=== PATIENT | male | born 1955 | race Caucasian/White ===

== ENCOUNTER 2017-04-02 18:07 | Emergency (ER) | payer OTHER ==
[~2017-04-02] VITALS: Ht 188 cm; Wt 111.0 kg
[2017-04-02 18:10] VITALS: PULSE 76; RESP 16; TEMP 98; O2SAT 98
[2017-04-02 18:26] VITALS: BP 150/78
[2017-04-02] MEDS ORDERED: AMIT10TA6 PO (18:26)
[2017-04-02] MEDS ORDERED: CYCL10TA PO (18:39)
[2017-04-02] MEDS ORDERED: TRAM50 PO (18:39)
[2017-04-02] MEDS ORDERED: HYDROmorphone HCL PF 2 MG/ML VIAL IM ONE ×2 (18:45)
[2017-04-02] MEDS ORDERED: DEXAMETHASONE SOD PHOS 20 MG/5 ML VIAL IM ONE (18:45)
[2017-04-02] MEDS ORDERED: HYDROmorphone HCL PF 4 MG/ML VIAL IM ONE (18:45)
[2017-04-02] MEDS ORDERED: LORazepam 2 MG/ML VIAL IM ONE (18:45)
--- NOTE | 2017-04-02 18:46 | PD ---
HPI . 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 Originally it felt like a burning/ stinging type pain but has evolved into a constant pain rated 6/10 at baseline and 9/10 with movement. Pain is aggravated by sitting up and relieve by lying flat and heat. He reports no other symptoms including bowel or bladder incontinence, numbness or tingling in toes, fevers/chills, or rashes PFSH Past Medical History Diabetes: Yes (PRE) Patient Takes Glucophage: No Diminished Hearing: No Medical other: Yes (NEUROPATHY) Tetanus Vaccination: > 5 Years Influenza Vaccination: No Past Surgical History Appendectomy: Yes Tonsillectomy: Yes Social History Alcohol Use: Yes (SOCIAL) Tobacco Use: No Substance Use: No Allergies-Medications (Allergen,Severity, Reaction): Coded Allergies: Penicillins (Verified Allergy, Unknown, 04/02/17) Reported Meds & Prescriptions Reported Meds & Active Scripts Active Flexeril (Cyclobenzaprine HCl) 10 Mg Tab 10 Mg PO TID Ultram (Tramadol HCl) 50 Mg Tab 50 Mg PO Q4H PRN Reported Amitriptyline (Amitriptyline HCl) 10 Mg Tab Unknown Dose PO HS Review of Systems Except as stated in HPI: all other systems reviewed are Neg General / Constitutional: No: Fever, Chills Musculoskeletal: Positive: Limited ROM, Pain (lower back) Skin: No Rash Physical Exam Narrative General: alert and oriented male in moderate distress laying flat on bed. Patient is diaphoretic. Eyes: pupils round and symmetric Head: normocephalic, atraumatic Cardiovascular: regular rate and rhythm. no rubs, murmurs or gallops Pulmonary: non-labored breathing Musculoskeletal: no spinal point tenderness. No paraspinal tenderness to palpation. Neuro: straight leg test positive bilaterally psych: mood and affect congruent Data Data Last Documented VS Vital Signs Date Time Temp Pulse Resp B/P (MAP) Pulse Ox O2 Delivery O2 Flow Rate FiO2 04/02/17 18:26 150/78 (102) 04/02/17 18:10 98.0 [address] Lumb Spine W/O Contrast (04/02/17 18:35) Hydromorphone Pf Inj (Dilaudid Pf Inj) (04/02/17 18:45) Lorazepam Inj (Ativan Inj) (04/02/17 18:45) Dexamethasone Inj (Decadron Inj) (04/02/17 18:45) Hydromorphone Pf Inj (Dilaudid Pf Inj) (04/02/17 18:45) Hydromorphone Pf Inj (Dilaudid Pf Inj) (04/02/17 18:45) MDM Medical Decision Making Medical Screen Exam Complete: Yes Emergency Medical Condition: Yes Differential Diagnosis fracture, musculoskeletal strain, contusion, spinal abscess Narrative Course Patient presented with low back pain after bending over to lift propane tank. Patient given Dilaudid, Ativan and Decadron injection. Spinal CT ordered Please see Marge Finn NP's note for results of laboratory and radiographic evaluation, ED course, final diagnosis and disposition Diagnosis Primary Impression: Low back pain Qualified Codes: M54.5 - Low back pain Patient Instructions: Acute Low Back Pain (DC), General Instructions Med/Other Pt SpecificInfo: Prescription(s) given Scripts Cyclobenzaprine (Flexeril) 10 Mg Tab 10 MG PO TID for Muscle Spasm, #30 TAB 0 Refills Prov: Mirtha Rosario MD 04/02/17 Tramadol (Ultram) 50 Mg Tab 50 MG PO Q4H Y for PAIN, #12 TAB 0 Refills Prov: Mirtha Rosario MD 04/02/17 Disposition: 01 DISCHARGE HOME Condition: Stable Mirtha Rosario MD Apr 02, 2017 18:46
--- NOTE | 2017-04-02 19:34 | RADRPT ---
EXAM DATE/TIME: 04/02/2017 18:56 [facility] COMPARISON: No previous studies available for comparison. 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 Appendectomy. ENCOUNTER: Initial ACUITY: 1 day PAIN SCALE: 7/10 LOCATION: spine TECHNIQUE: Volumetric scanning of the lumbar spine was performed. Multiplanar reconstructions in the sagittal, coronal and oblique axial planes were performed. Using automated exposure control and adjustment of the mA and/or kV according to patient size, radiation dose was kept as low as reasonably achievable t o obtain optimal diagnostic quality images. DICOM format image data is available electronically for review and comparison. FINDINGS: VERTEBRAE: Normal vertebral body height. ALIGNMENT: No evidence of subluxation. T12-L1: The thecal sac has a normal diameter. No evidence of disc bulge or protrusion. The neural foramina are patent bilaterally. L1-L2: The thecal sac has a normal diameter. No evidence of disc bulge or protrusion. The neural foramina are patent bilaterally. L2-L3: The thecal sac has a normal diameter. No evidence of disc bulge or protrusion. The neural foramina are patent bilaterally. L3-L4: The thecal sac has a normal diameter. No evidence of disc bulge or protrusion. The neural foramina are patent bilaterally. L4-L5: The thecal sac has a normal diameter. No evidence of disc bulge or protrusion. The neural foramina are patent bilaterally. L5-S1: The thecal sac has a normal diameter. No evidence of disc bulge or protrusion. The neural foramina are patent bilaterally. CONCLUSION: Normal examination. Prominent osteophytes of the lumbar spine. Roly Berumen MD on April 02, 2017 at 19:31 Board Certified Radiologist. This report was verified electronically.
--- NOTE | 2017-04-02 19:43 | PD ---
Physical Exam Narrative In brief this is a 61-year-old male who presents to the ER with low back pain after he had an injury bending over carrying a propane tank. He was originally seen by Dr. Rosario. He received IM Dilaudid, IM Valium, and IM Decadron he reports symptom improvement after medications. CT scan of the lumbar spine is negative for fracture. This was discussed with patient and family. He was reevaluated and has a normal neurologic exam. Patient is now ambulatory. He is stable and ready for discharge home. Data Data Last Documented VS Vital Signs Date Time Temp Pulse Resp B/P (MAP) Pulse Ox O2 Delivery O2 Flow Rate FiO2 04/02/17 18:26 150/78 (102) 04/02/17 18:10 98.0 [address] Lumb Spine W/O Contrast (04/02/17 18:35) Hydromorphone Pf Inj (Dilaudid Pf Inj) (04/02/17 18:45) Lorazepam Inj (Ativan Inj) (04/02/17 18:45) Dexamethasone Inj (Decadron Inj) (04/02/17 18:45) Hydromorphone Pf Inj (Dilaudid Pf Inj) (04/02/17 18:45) Hydromorphone Pf Inj (Dilaudid Pf Inj) (04/02/17 18:45) MDM Medical Record Reviewed: Yes Supervised Visit with HAO: Yes Diagnosis Primary Impression: Low back pain Qualified Codes: M54.5 - Low back pain Referrals: Family Practice Physician call for appointment [facility] call for appointment Patient Instructions: General Instructions, Acute Low Back Pain (DC) Departure Forms: Tests/Procedures Scripts Cyclobenzaprine (Flexeril) 10 Mg Tab 10 MG PO TID for Muscle Spasm, #30 TAB 0 Refills Prov: Mirtha Rosario MD 04/02/17 Tramadol (Ultram) 50 Mg Tab 50 MG PO Q4H Y for PAIN, #12 TAB 0 Refills Prov: Mirtha Rosario MD 04/02/17 Disposition: 01 DISCHARGE HOME Condition: Stable Marge Finn Apr 02, 2017 19:43
[2017-04-02 19:46] VITALS: RESP 18
== END 2017-04-02 19:48 | disposition home or self-care (01) ==
LOC: PHEFT 18:07
DX: M54.5 Low back pain (principal); X50.0XXA Overexertion from strenuous movement or load, initial encounter; E11.9 Type 2 diabetes mellitus without complications
CPT/HCPCS: 72131; 96372; 99284; J1100; J1170; J2060